=== PATIENT | female | born 1965 | race Caucasian/White ===

== ENCOUNTER → 2017-07-27 | Outpatient (CLI) | payer OTHER | LOC: FIMAGING 09:25 | PROVIDERS: ATTEND Nurse Practitioner Family | DX: Z12.31 Encounter for screening mammogram for malignant neoplasm of breast (principal) | CPT/HCPCS: G0202 ==

== ENCOUNTER → 2018-04-26 | Outpatient (CLI) | payer OTHER | LOC: FIMAGING 10:47 | PROVIDERS: ATTEND Nurse Practitioner Family | DX: D25.9 Leiomyoma of uterus, unspecified (principal); Z90.721 Acquired absence of ovaries, unilateral ==

== ENCOUNTER 2018-11-14 07:13 | Emergency (ER) | payer OTHER ==
[2018-11-14] MEDS ORDERED: ONDANSETRON 4 MG/2 ML VIAL IVP ONE (07:37)
[2018-11-14] MEDS ORDERED: NS 1,000 ML IV ONE ×2 (07:37→08:44)
[2018-11-14] MEDS ORDERED: ACETAMINOPHEN 325 MG TAB PO ONE (07:53)
[2018-11-14] MEDS ORDERED: KETOROLAC 15 MG/1 ML SDV IVP ONE (07:53)
--- NOTE | 2018-11-14 07:56 | EDPHY ---
H & P Stated Complaint: n/v, cough Time Seen by Provider: 11/14/18 07:43 HPI/ROS: CHIEF COMPLAINT: Vomiting, cough HISTORY OF PRESENT ILLNESS: 53-year-old female presents with vomiting and cough. Onset of cough and diffuse chest pain 3 days ago. The chest pain increases with movement and with coughing. Onset of fever and chills 2 days ago , associated with myalgias and fatigue. Vomiting started yesterday. Unable to tolerate oral fluids or food. No diarrhea. No flu vaccination this year. REVIEW OF SYSTEMS: complete 10 point ROS reviewed and is negative except for the noted elements in the HPI - Personal History Current Tetanus/Diphtheria Vaccine: Yes Current Tetanus Diphtheria and Acellular Pertussis (TDAP): Yes - Medical/Surgical History Hx Asthma: No Hx Chronic Respiratory Disease: No Hx Diabetes: No Hx Cardiac Disease: No Hx Renal Disease: No Hx Cirrhosis: No Hx Alcoholism: No Hx HIV/AIDS: No Hx Splenectomy or Spleen Trauma: No Other PMH: L ovary removed, partial R ovary removed (benign), tonsillectomy - Social History Smoking Status: Never smoked - Physical Exam Exam: General Appearance: Alert, pleasant Eyes: Pupils equal and round, no conjunctival pallor or injection ENT, Mouth: Mucous membranes dry Neck: Normal inspection Respiratory: Rales at right base Cardiovascular: Regular rate and rhythm Gastrointestinal: Abdomen is soft and nontender Neurological: A&O, nonfocal exam Skin: Warm and dry, no rash Extremities: Normal inspection Psychiatric: Mood and affect normal Constitutional: Initial Vital Signs Temperature (C) 37.8 C 11/14/18 07:17 Heart Rate 101 H 11/14/18 07:17 Respiratory Rate 24 H 11/14/18 07:17 Blood Pressure 139/104 H 11/14/18 07:17 O2 Sat (%) 98 11/14/18 07:17 O2 Delivery Mode Room Air Allergies/Adverse Reactions: No Known Allergies Allergy (Verified 11/14/18 07:17) Home Medications: Medication Instructions Recorded Advil 11/14/18 Ondansetron Odt [Zofran Odt 4 mg 4 mg PO Q4 PRN #6 tab 11/14/18 (*)] Promethazine HCl [Phenergan Rectal] 25 mg OR Q6 PRN #10 suppr 11/14/18 Theraflu Expressmax Cold Nt Lq 11/14/18 Medical Decision Making - Diagnostics Imaging: I viewed and interpreted images myself ED Course/Re-evaluation: Assessment: Influenza A positive. This patient presents with a four-day history of symptoms, now dehydrated after multiple episodes of vomiting. Tamiflu not inicated. Chest x-ray reveals no evidence of pneumonia. IV normal saline 2 L, Zofran and Phenergan IV given. Patient feels better after these medications, but continues to be somewhat nauseated. Able to tolerate oral fluids. Yury santoyo NT. Would like to go home. Will send her home with Zofran ODT and Phenergan suppositories. She will return to ED for persistent vomiting , any concerns. Differential Diagnosis: includes though not limited to pneumonia, severe dehydration, SBO, appy, intraabd infection, pyelo - Data Points Laboratory Results: Laboratory Results 11/14/18 07:30 11/14/18 07:30 Medications Given: Discontinued Medications Acetaminophen (Tylenol) 650 mg PO EDNOW ONE Stop: 11/14/18 07:54 Last Admin: 11/14/18 10:14 Dose: Not Given Sodium Chloride (Ns) 1,000 mls @ 0 mls/hr IV EDNOW ONE; Wide Open PRN Reason: Protocol Stop: 11/14/18 07:38 Last Admin: 11/14/18 07:41 Dose: 1,000 mls Sodium Chloride (Ns) 1,000 mls @ 0 mls/hr IV EDNOW ONE; Wide Open PRN Reason: Protocol Stop: 11/14/18 08:45 Last Admin: 11/14/18 08:47 Dose: 1,000 mls Ketorolac Tromethamine (Toradol) 15 mg IVP EDNOW ONE Stop: 11/14/18 07:54 Last Admin: 11/14/18 08:15 Dose: 15 mg Ondansetron HCl (Zofran) 4 mg IVP EDNOW ONE Stop: 11/14/18 07:38 Last Admin: 11/14/18 07:41 Dose: 4 mg Promethazine HCl (Phenergan) 12.5 mg IVP EDNOW ONE Stop: 11/14/18 09:13 Last Admin: 11/14/18 09:15 Dose: 12.5 mg Departure - Departure Disposition: Home, Routine, Self-Care Clinical Impression: Influenza A Condition: Good Instructions: Influenza (ED), Acute Nausea and Vomiting (ED) Additional Instructions: 1. Clear liquids for 24 hours. 2. Advance diet as tolerated. I suggest the BRAT diet to start: bananas, rice, applesauce and toast. 3. Return for worsening symptoms, persistent vomiting, abdominal pain, any concerns. 4. Zofran 1 tablet under the tongue every 6 hr as needed for nausea. 5. Alternate ibuprofen and Tylenol every 3 hr for fever and pain control. Referrals: Mary Quinones MD [Primary Care Provider] - As per Instructions Prescriptions: Ondansetron Odt [Zofran Odt 4 mg (*)] 4 mg PO Q4 PRN #6 tab PRN Reason: Nausea Promethazine HCl [Phenergan Rectal] 25 mg OR Q6 PRN #10 suppr PRN Reason: Nausea
[2018-11-14 08:01] LABS: PLATELET COUNT 148 10^3/uL (150-400)
[2018-11-14] MEDS ORDERED: PROMETHAZINE HCL 25 MG/ML INJ IVP ONE (09:12)
[2018-11-14] MEDS ORDERED: PROMETHAZINE HCL 25 MG/ML INJ ONE (09:13)
[2018-11-14 11:05] VITALS: BP 145/99
== END 2018-11-14 11:10 | disposition home or self-care (01) ==
DX: J09.X2 Influenza due to identified novel influenza A virus with other respiratory manifestations (principal); J40 Bronchitis, not specified as acute or chronic; E86.9 Volume depletion, unspecified
CPT/HCPCS: 96374; J1885; J2405; J2550

== ENCOUNTER 2018-11-16 21:56 | Observation (INO) | payer OTHER ==
[2018-11-16] MEDS ORDERED: NS 1,000 ML IV ONE (22:10)
--- NOTE | 2018-11-16 22:10 | EDPHY ---
H & P Stated Complaint: +flu, doesnt feel better, cough Time Seen by Provider: 11/16/18 22:06 HPI/ROS: HPI: This is a 53-year-old female who presents with Chief Complaint: +flu, doesn't feel better, cough Location: Chest Quality: Cough Duration: 6 days Signs and Symptoms: no shortness of breath at rest, + shortness of breath on exertion, + nonproductive cough, no chest pain, no palpitations, no lower extremity edema, no wheezing, no orthopnea, no paroxysmal nocturnal dyspnea, no fever, no injury/trauma, no hemoptysis, no carpal pedal spasms Timing: Acute, worsened Severity: Moderate to severe Context: Patient is generally healthy, never smoked, presents today with not getting any better after being diagnosed with influenza a on 11/14/2018 in this emergency room. Patient today has had 6 days of symptoms. She was not eligible for Tamiflu as her symptoms started 4 days prior to being seen. She complains of generalized fatigue, nonproductive hacking cough, "rattling in her chest." She reports that she is just not getting any better and that she actually feels worse. Modifying Factors: Took Mucinex and Tylenol without improvement Comment: ROS: A comprehensive 10 system review of systems is otherwise negative aside from elements mentioned in the history of present illness. MEDICAL/SURGICAL/SOCIAL HISTORY: Medical history: Generally healthy. Does not take any regular medications. Surgical history: L ovary removed, partial R ovary removed (benign), tonsillectomy Social history: Never smoked. CONSTITUTIONAL: Ill appearing, uncomfortable, elderly white female, pallor, awake and alert, [id number] distress HEENT: Atraumatic and normocephalic, PERRL, EOMI. Nares patent; no rhinorrhea; no nasal mucosal edema. Tympanic membranes clear. Oropharynx clear, no exudate and moist pink mucosa. Airway patent. No lymphadenopathy. No meningismus. Cardiovascular: Normal S1/S2, tachycardia, regular rhythm, without murmur rub or gallop. PULMONARY/CHEST: Symmetrical and nontender. Coarseness on the upper left. Fair air movement. Shallow inspiratory effort. No accessory muscle usage. ABDOMEN: Soft, nondistended, nontender, no rebound, no guarding, no peritoneal signs, no masses or organomegaly. No CVAT. EXTREMITIES: 2/2 pulses, strength 5/5, no deformities, no clubbing, no cyanosis or edema. NEUROLOGICAL: no focal neuro deficits. GCS 15. SKIN: Warm and dry, no erythema. no rash. Good capillary refill. Source: Patient, Old records Exam Limitations: No limitations - Personal History Current Tetanus Diphtheria and Acellular Pertussis (TDAP): Yes - Medical/Surgical History Hx Asthma: No Hx Chronic Respiratory Disease: No Hx Diabetes: No Hx Cardiac Disease: No Hx Renal Disease: No Hx Cirrhosis: No Hx Alcoholism: No Hx HIV/AIDS: No Hx Splenectomy or Spleen Trauma: No Other PMH: L ovary removed, partial R ovary removed (benign), tonsillectomy - Social History Smoking Status: Never smoked Constitutional: Initial Vital Signs Temperature (C) 37.2 C 11/16/18 21:57 Heart Rate 101 H 11/16/18 21:57 Respiratory Rate 20 11/16/18 21:57 Blood Pressure 139/96 H 11/16/18 21:57 O2 Sat (%) 93 11/16/18 21:57 O2 Delivery Mode Room Air O2 (L/minute) 1 Allergies/Adverse Reactions: No Known Allergies Allergy (Verified 11/14/18 07:17) Home Medications: Medication Instructions Recorded Advil 11/14/18 Ondansetron Odt [Zofran Odt 4 mg 4 mg PO Q4 PRN #6 tab 11/14/18 (*)] Promethazine HCl [Phenergan Rectal] 25 mg GA Q6 PRN #10 suppr 11/14/18 Theraflu Expressmax Cold Nt Lq 11/14/18 Medical Decision Making - Diagnostics Imaging Results: Imaging Impressions Chest X-Ray 11/16/18 22:10 Impression: Clear lungs except for bibasilar atelectasis. ED Course/Re-evaluation: Vital signs reviewed and show tachycardia with O2 sats 93% on room air IV access and laboratory studies including lactic acid and chest x-ray ordered Will evaluate for sepsis versus pneumonia Patient given 1 L normal saline, IV Solu-Medrol 125 mg, DuoNeb and Tessalon Perles 2244: Labs reviewed. No signs of leukocytosis/anemia/platelet dysfunction/CLAUDIO/ elevated LFTs/electrolyte imbalance/sepsis. Chest x-ray my read shows no opacity, effusion. Does show some atelectasis. Ambulating pulse ox 94-95% on room air. Heart rate remained below 110. 2305: Albuterol nebulizer and oxycodone ordered 0005: Lying in bed talking to her daughter when O2 sats were 88-89% on room air. ED decision to consult hospitalist for admission for influenza a and hypoxia. This patient was seen under the supervision of my secondary supervising physician. I evaluated care for this patient independently. Discussed this patient with Dr. Barnett who did not see the patient. Differential Diagnosis: Shortness of breath including but not limited to pulmonary infectious process, COPD, asthma, pulmonary embolus and congestive heart failure. - Data Points Laboratory Results: Laboratory Results 11/16/18 22:15 11/16/18 22:15 11/16/18 11/16/18 11/16/18 22:15 22:15 22:15 WBC 5.03 10^3/uL 10^3/uL (3.80-9.50) RBC 4.83 10^6/uL 10^6/uL (4.18-5.33) Hgb 14.1 g/dL g/dL (12.6-16.3) Hct 42.0 % % (38.0-47.0) MCV 87.0 fL fL (81.5-99.8) MCH 29.2 pg pg (27.9-34.1) MCHC 33.6 g/dL g/dL (32.4-36.7) RDW 12.0 % % (11.5-15.2) Plt Count 123 10^3/uL L 10^3/uL (150-400) MPV 10.6 fL fL (8.7-11.7) Neut % (Auto) 76.8 % H % (39.3-74.2) Lymph % (Auto) 12.7 % L % (15.0-45.0) [place] % (Auto) 10.1 % % (4.5-13.0) Eos % (Auto) 0.0 % L % (0.6-7.6) Baso % (Auto) 0.2 % L % (0.3-1.7) Nucleat RBC Rel Count 0.0 % % (0.0-0.2) Absolute Neuts (auto) 3.86 10^3/uL 10^3/uL (1.70-6.50) Absolute Lymphs (auto) 0.64 10^3/uL L 10^3/uL (1.00-3.00) Absolute Monos (auto) 0.51 10^3/uL 10^3/uL (0.30-0.80) Absolute Eos (auto) 0.00 10^3/uL L 10^3/uL (0.03-0.40) Absolute Basos (auto) 0.01 10^3/uL L 10^3/uL (0.02-0.10) Absolute Nucleated RBC 0.00 10^3/uL 10^3/uL (0-0.01) Immature Gran % 0.2 % % (0.0-1.1) Immature Gran # 0.01 10^3/uL 10^3/uL (0.00-0.10) VBG Lactic Acid 0.9 mmol/L mmol/L (0.7-2.1) Sodium 135 mEq/L mEq/L (135-145) Potassium 3.8 mEq/L mEq/L (3.5-5.2) Chloride 106 mEq/L mEq/L (97-110) Carbon Dioxide 21 mEq/l L mEq/l (22-31) Anion Gap 8 mEq/L mEq/L (6-14) BUN 10 mg/dL mg/dL (7-23) Creatinine 0.8 mg/dL mg/dL (0.6-1.0) Estimated GFR > 60 Glucose 115 mg/dL H mg/dL (70-100) Calcium 8.7 mg/dL mg/dL (8.5-10.4) Total Bilirubin 0.4 mg/dL mg/dL (0.1-1.4) Conjugated Bilirubin 0.2 mg/dL mg/dL (0.0-0.5) Unconjugated Bilirubin 0.2 mg/dL mg/dL (0.0-1.1) AST 41 IU/L IU/L (14-46) ALT 52 IU/L IU/L (9-52) Alkaline Phosphatase 89 IU/L IU/L (38-126) Total Protein 6.6 g/dL g/dL (6.3-8.2) Albumin 4.1 g/dL g/dL (3.5-5.0) Medications Given: Discontinued Medications Albuterol (Proventil Neb) 3 ml IH EDNOW ONE Stop: 11/16/18 23:02 Last Admin: 11/16/18 23:15 Dose: 3 ml Albuterol/Ipratropium (Duoneb) 3 ml IH EDNOW ONE Stop: 11/16/18 22:12 Last Admin: 11/16/18 22:20 Dose: 3 ml Benzonatate (Tessalon Pearles) 200 mg PO EDNOW ONE Stop: 11/16/18 22:12 Last Admin: 11/16/18 22:18 Dose: 200 mg Sodium Chloride (Ns) 1,000 mls @ 0 mls/hr IV ONCE ONE; Wide Open PRN Reason: Protocol Stop: 11/16/18 22:11 Last Admin: 11/16/18 22:17 Dose: 1,000 mls Methylprednisolone Sodium Succinate (Solu-Medrol) 125 mg IVP EDNOW ONE Stop: 11/16/18 22:12 Last Admin: 11/16/18 22:18 Dose: 125 mg Oxycodone HCl (Oxycodone Ir) 5 mg PO EDNOW ONE Stop: 11/16/18 23:14 Last Admin: 11/16/18 23:14 Dose: 5 mg Oxycodone/Acetaminophen (Percocet 5/325) 1 tab PO EDNOW ONE Stop: 11/16/18 23:02 Last Admin: 11/16/18 23:15 Dose: Not Given Departure - Departure Disposition: [facility] Clinical Impression: Influenza A, Influenzal bronchitis, Hypoxia Condition: Fair
[2018-11-16] MEDS ORDERED: methylPREDNISolone SOD SUCC 125 MG/2 ML VIAL IVP ONE (22:11)
[2018-11-16] MEDS ORDERED: BENZONATATE 100 MG CAP PO ONE (22:11)
[2018-11-16] MEDS ORDERED: IPRATROPIUM/ALBUTEROL 3 ML DEYVIAL IH ONE (22:11)
[2018-11-16 22:38] LABS: PLATELET COUNT 123 10^3/uL (150-400)
[2018-11-16] MEDS ORDERED: OXYCODONE/APAP 5/325 TAB PO ONE (23:01)
[2018-11-16] MEDS ORDERED: ALBUTEROL 3 ML DEYVIAL IH ONE (23:01)
[2018-11-16] MEDS ORDERED: ALBUTEROL 3 ML DEYVIAL ONE (23:12)
[2018-11-16] MEDS ORDERED: oxyCODONE IR 5 MG TAB ONE (23:12)
[2018-11-16] MEDS ORDERED: oxyCODONE IR 5 MG TAB PO ONE (23:13)
[2018-11-17] MEDS ORDERED: ALBUTEROL 3 ML DEYVIAL IH PRN (01:08)
[2018-11-17] MEDS ORDERED: ACETAMINOPHEN 325 MG TAB PO PRN (01:08)
[2018-11-17] MEDS ORDERED: ONDANSETRON DISINTEGRATING 4 MG TAB PO PRN (01:08)
[2018-11-17] MEDS ORDERED: ONDANSETRON 4 MG/2 ML VIAL IVP PRN (01:08)
[2018-11-17] MEDS ORDERED: BENZONATATE 100 MG CAP PO PRN (01:10)
[2018-11-17] MEDS ORDERED: GUAIFENESIN/DM 10 ML UDCUP PO PRN (01:11)
[2018-11-17] MEDS ORDERED: NS 1,000 ML IV SCH (01:15)
[2018-11-17] MEDS: OSELTAMIVIR PHOSPHATE 75 MG CAP PO SCH ×2 (02:10→08:27)
[2018-11-17 05:46] LABS: PLATELET COUNT 115 10^3/uL (150-400)
--- NOTE | 2018-11-17 06:37 | GHP ---
DATE OF ADMISSION: 11/17/2018 PRIMARY CARE PHYSICIAN: Mary Quinones MD. SOURCE: Patient provides history, appears reliable. EMR was reviewed and case discussed with ED pro vider. CHIEF COMPLAINT: Flu A, shortness of breath, worsening cough. HISTORY OF PRESENT ILLNESS: This is a very pleasant 53-year-old female, who is overall fairly health y, who presents to the emergency department today with complaints of 6 days worth of symptoms related to flu A. Patient was diagnosed on 11/14/2018, when she presented to the emergency department with complaints of nausea, vomiting, and ability to keep anything down. She was also having fevers, myalg ias, fatigue, cough. The patient reports that her symptoms started 6 days ago. She was not started on Tamiflu due to being outside the 48-hour window. She received fluids and Phenergan suppositories, which helped with some of her nausea and vomiting. However, patient reports that she is still unabl e to keep the Tamiflu down. She had been alternating Tylenol and ibuprofen as directed at time of maggie sharfi from the ER. The patient reports that she was busy this season and was not able to get in he r flu vaccination for the year. The patient was also concerned because she was having bilateral pleu ritic-type chest pain with coughing and inspiration. She has a significant cardiac history for CAD a t an older age. Her father and paternal grandfather both had coronary artery disease. The patient d enies any diarrhea. She has continued to have fevers and chills at home. With increasing shortness of breath and increasing chest pain, patient presented to the ED today for further evaluation. REVIEW OF SYSTEMS: Ten systems reviewed, negative except as noted above. ALLERGIES: No known drug allergies. HOME MEDICATIONS: Phenergan suppositories, Zofran, Advil, TheraFlu, Tylenol. PAST MEDICAL HISTORY: Patient denies. PAST SURGICAL HISTORY: Left ovary and fallopian tube removed, found to be benign. Patient was noted to have endometriosis. Tonsillectomy and adenoidectomy. FAMILY HISTORY: Significant for father and paternal grandfather with history of CAD. Father's first DE at age 69. No lung disease history in the family. SOCIAL HISTORY: Patient is a massage therapist. She does not smoke, drink, or utilize any illicit d rugs. CODE STATUS: Full. PHYSICAL EXAMINATION: VITAL SIGNS: Upon arrival to the emergency department, blood pressure 139/96, heart rate 101, respiratory rate 20, O2 saturation 93% on room air, temperature 37.2. Patient did h ave an O2 saturation that decreased down to 91% on room air. Her current vital signs available, igor her pressure is 118/73, heart rate 77, respiratory rate 16, O2 saturation 94% on 1 L by nasal cannula w ith a temperature of 36.9. GENERAL: No acute distress, pleasant adult female lying quietly in bed. She does appear acutely ill, but nontoxic, quite fatigued, and slightly pale. HEAD: Normocephalic, atraumatic. EYES: Extraocular muscles are grossly intact. Pupils are symmetric. No scleral icter us, conjunctival injection. ENT: Mucous membranes appear dry. No nasal discharge. NECK: Supple. Trachea midline. CV: Heart rate slightly tachycardic in the 90s. No murmurs, rubs, or gallops morena reciated. No chest wall tenderness to palpation. RESPIRATORY: Unlabored breathing. Patient with o ccasional congested-sounding cough. She has bibasilar crackles, but no wheezing or rhonchi. ABDOMEN : Mildly distended. The patient reports palpation increases her nausea significantly. She has hypo active bowel sounds, but abdomen is otherwise soft, nontender to palpation. : No suprapubic tende rness to palpation. No Frank catheter in place. EXTREMITIES: No cyanosis, clubbing, or edema. 2+ pedal pulses. NEURO: Grossly nonfocal. Moves all extremities. Strength, patient with some general ized deconditioning and does appear quite fatigued. PSYCH: Patient is quite pleasant and cooperativ e. Thought process, content and questions appear appropriate. LABORATORY STUDIES: WBC 5.03, H and H is 14.1, 42.0, platelet count is 123, down from 148 on 018. MCV of 87.0, no bands. Lactic acid 0.9. Sodium is 135, potassium 3.8, chloride is 106, anion gap is 21, BUN is 10, creatinine 0.8. GFR is greater than 60. Glucose 115, total bilirubin is 0.4, conjugated bilirubin 0.2. ALT 32, AST is 41, total protein 6.6, albumin is 4.1. Flu A was positive on 11/14/2018. HIV negative on 11/04/2018. Chest x-ray: Image and report reviewed by myself. The patient had an x-ray on November 14, and tomer flood today, November 16. The x-ray on November 14, noted some mild bronchitis. No definite focal pneum onia. Chest x-ray upon admission showed clear lungs, except for some minimal linear atelectasis in [facility] right middle lobe and left lower lobe. ASSESSMENT AND PLAN: A very pleasant 53-year-old female, who is otherwise healthy, who presents to [facility] emergency department with complaints of worsening respiratory symptoms related to flu A. 1. Influenza A. The patient had been intolerant of Tamiflu despite her symptoms having started 6 da ys ago. She is now being admitted to the hospital, so will initiate Tamiflu along with antiemetics g iven patient's complaint of increased nausea, vomiting, and GI upset when she took it previously. Al l other supportive measures for her cough, any fevers, chills. IV fluids for dehydration. Advance d iet as tolerated. 2. Thrombocytopenia. The patient with slowly declining platelet count, likely related to influenza. Continue to monitor. 3. Fluid, electrolyte, nutrition. IV fluids as noted above. Encourage oral hydration as tolerated. Antiemetics p.r.n. for symptoms. Electrolytes are adequate. Do not require replacement at this ti me. 4. Prophylaxis. SCD's. Consider Lovenox if patient should stay additional day. She is low moderat e risk. SCDs while in bed as tolerated. 5. Code status is full. DISPOSITION: Patient admitted to observation status on the Med/Surg floor. She currently is reporti ng that she is feeling better. She did [facility] We will continue with p.r.n. nebulizers. We will titrate down O2 to see if she c an maintain her sats on room air. The patient is hopeful that she should be able to discharge later today. We will continue to monitor her progress. /[id number]/MODL
[2018-11-17] MEDS ORDERED: ENOXAPARIN 40 MG/0.4 ML SYR SC SCH (09:00)
--- NOTE | 2018-11-17 10:47 | ASMTCMCOM ---
CM Note CM Note Notes: Chart reviewed. 53 year old female presented to ER with c/o flu like symptoms. No current needs identified. CM available should needs arise. Plan: Likely to discharge independently when medically cleared for discharge. Date Signed: 11/17/2018 10:47 AM Electronically Signed By:Vicky Vicente RN
--- NOTE | 2018-11-17 12:24 | PDDCSUM ---
Discharge Summary Discharge Summary: Date of Admission: 11/17/2018 Date of Discharge: 11/17/2018 Studies: 1. CXR - no pneumonia Discharge Diagnoses: 1. Influenza A viral infection 2. Nausea 3. Thrombocytopenia Brief Hospital Course: Healthy 53yo F recently diagnosed with influenza A in ED. Returned last night due to worsening shortness of breath and nausea/inability to tolerate PO. CXR was without pneumonia. She briefly required 1L of supplemental oxygen but this was weaned prior to discharge. She was started on tamiflu and improved with symptom management. She was tolerating PO. Of note, her platelets were mildly low. This was likely consumptive in setting of viral process. She had no signs of bleeding. Medications: Please refer to EMR. Prescription for Tamiflu 75mg BID #8 (4 more days) was sent to her pharmacy. Follow Up Plan: 1. Recommend repeating CBC in 2-4 weeks to ensure platelets improving 2. Follow up with PCP Physical Exam: Vitals reviewed, afebrile and normotensive. Alert and oriented, RRR without m/r/g, lungs clear without wheezing, abdomen soft and nt, no rashes.
--- NOTE | 2018-11-17 12:30 | ASMTLACE ---
LACE Length of stay for Answers: Less than 1 day current admission # of Emergency department Answers: 1-2 visits in the last 6 months Score: 1 Date Signed: 11/17/2018 12:30 PM Electronically Signed By:Vicky Vicente RN
[2018-11-17 12:45] VITALS: BP 130/87
== END 2018-11-17 14:30 | disposition home or self-care (01) ==
LOC: F3N 11-17 01:42
PROVIDERS: ADMIT Family Medicine; ATTEND Internal Medicine
DX: J11.1 Influenza due to unidentified influenza virus with other respiratory manifestations (principal); D69.6 Thrombocytopenia, unspecified; Z90.721 Acquired absence of ovaries, unilateral; Z82.49 Family history of ischemic heart disease and other diseases of the circulatory system
CPT/HCPCS: 71046; G0378; 96374; J1650; J2930; J7613

== ENCOUNTER → 2019-02-22 | Outpatient (CLI) | payer OTHER | LOC: FIMAGING 14:27 | PROVIDERS: ATTEND Nurse Practitioner Family | DX: Z12.31 Encounter for screening mammogram for malignant neoplasm of breast (principal); Z80.3 Family history of malignant neoplasm of breast ==

== ENCOUNTER → 2019-04-11 | Outpatient (CLI) | payer OTHER | LOC: EMCIMAGING 10:57 | PROVIDERS: ATTEND Nurse Practitioner Family | DX: D25.9 Leiomyoma of uterus, unspecified (principal); Q50.1 Developmental ovarian cyst; N80.9 Endometriosis, unspecified; K76.89 Other specified diseases of liver | CPT/HCPCS: 74177-PN ==